=== PATIENT | male | born 1945 | race Caucasian/White ===

== ENCOUNTER 2025-02-11 16:01 | Outpatient (CLI) | payer MEDICARE | END 2025-02-11 16:02 | disposition home or self-care (01) | LOC: CT 16:01 | PROVIDERS: ATTEND Otolaryngology Plastic Surgery within the Head & Neck | DX: T81.30XA Disruption of wound, unspecified, initial encounter (principal); Z98.890 Other specified postprocedural states | CPT/HCPCS: 70480 ==